=== PATIENT | female | born 1970 | race Two or more races ===

== ENCOUNTER 2024-02-25 21:57 | Emergency (ER) | payer MEDICAID, SELFPAY ==
[2024-02-25 22:08] VITALS: BP 162/92; PULSE 81; RESP 16; TEMP 36.8; O2SAT 98
--- NOTE | 2024-02-25 22:12 | EDNOTE_ITS ---
ED Skin Abcess FB-RME/HPI General Chief complaint: Skin/Abscess/Foreign Body Stated complaint: RASH, RAZO Time Seen by Provider: 02/25/24 22:07 Arrival date/time: 02/25/24 21:57 RME / HPI RME / HPI narrative: 54-year-old female patient with no significant medical history, came in for evaluation regarding right-sided chest wall rashes onset of symptoms for the last 3 days as painful rash on the right side of her chest wall, radiating to the back, severity moderate. Patient also complained of headache, and fevers. Denies any cough denies any other complaints no medications taken prior to arrival Related Data Previous Rx's ?Medication ?Instructions ?Recorded ibuprofen 800 mg tablet 800 mg PO TID PRN pain #30 tabs 02/25/24 valacyclovir 1 gram tablet 1,000 mg PO TID #21 tabs 02/25/24 (Valtrex) Allergies Allergy/AdvReac Type Severity Reaction Status Date / Time diphenhydramine Allergy Verified 02/25/24 22:01 [From Lucy] Review of Systems Review of Systems Narrative Review of Systems: Review of system reviewed and within normal limits except mentioned in HPI ED Exam Narrative Physical exam: VITAL SIGNS: Reviewed. GENERAL APPEARANCE: Alert and interactive, follows commands, no acute distress, HEAD AND FACE: Non-traumatic. ENT: PERRL, pink conjunctivitis, eyelid no trauma, Mucous membrane moist. NECK: Supple, nontender, no nuchal rigidity. CHEST: No tenderness, no crepitus, no paradoxical movement, no retractions. LUNGS: Clear, well ventilated, symmetric, no rales, no wheezing, no ronchi, no stridor, good breath sounds bilaterally. HEART: Regular rate, regular rhythm, no murmur, no gallops. ABDOMEN: Soft, positive bowel sounds, nondistended, no guarding, nontender, no rebound, no masses, RECTAL: Deferred. GENITAL: Deferred. NEUROLOGICAL: Gross motor function intact sensory function intact, Appropriate for age. MUSCULOSKELETAL: low back nontender, full range of motion. EXTREMITIES: Nontender, full range of motion. SKIN: Color pink, dry, multiple rashes noted on the right side of the chest wall, with blisters, erythematous, with tenderness, no lacerations, no abrasions, no contusions. LYMPHATICS: Deferred. Course Quality Measures none Orders Category Date Time Status Acyclovir [Zovirax] Med 02/25/24 22:17 Discontinued 800 mg PO X1 ONE Ketorolac Inj [Toradol Inj] Med 02/25/24 22:17 Discontinued 30 mg IM X1 ONE Vital Signs Vital signs: Vital Signs Temperature 98.3 F 02/25/24 22:08 Pulse Rate 81 02/25/24 22:08 Respiratory Rate 16 02/25/24 22:08 Blood Pressure 162/92 H 02/25/24 22:08 Pulse Oximetry (%) 98 02/25/24 22:08 Oxygen Delivery Method Room Air 02/25/24 22:08 Skin / Abscess / Foreign Body MDM Narrative MDM Narrative:: 54-year-old female patient with no significant medical history, came in for evaluation regarding right-sided chest wall rashes onset of symptoms for the last 3 days as painful rash on the right side of her chest wall, radiating to the back, severity moderate. Patient also complained of headache, and fevers. Denies any cough denies any other complaints no medications taken prior to arrival Patient is having shingles. Patient received acyclovir in the emergency room. Patient data External records reviewed:: None Clinical information provided by:: patient and family Social determinants that could affect healthcare access:: none Patient has the following chronic illnesses:: None How is presenting disease/condition affected by chronic disease/condition?: no chronic disease Evaluation data The following diagnostics were reviewed and interpreted by me:: other (specify) (none) Lab and/or radiology exams considered but not ordered:: none Interpretation Summary: none Medications / Prescriptions Medications or Prescriptions considered but not ordered:: None Medication administrations:: Medication Administration History Discontinued Medications Acyclovir (Acyclovir 800 Mg Tablet) 800 mg PO X1 ONE Stop: 02/25/24 22:18 Ketorolac Tromethamine (Ketorolac Inj 60 Mg/2 Ml Vial) 30 mg IM X1 ONE Stop: 02/25/24 22:18 Acyclovir, Toradol Consultations Consultation(s) initiated? (list below): No Diagnosis Skin/Abscess Differential Diagnosis: viral exanthem and herpes zoster Most likely diagnosis given after review of the tests above:: Single Admission Indicated Admission indicated?: not indicated Admission Request Was there a request for admission?: No Disposition Plan Disposition Plan: Discharge Discharge Attestation Discharge Attestation: The patient and all family members were given an opportunity to ask questions and understood the discharge instructions. Discharge instructions specifically effects, indications for sooner follow up or return to the emergency department, and the expected course of current diagnosis. Patient condition: Stable Discharge Plan Plan Patient Disposition: HOME (Self Care) Disposition Comment: None Prescriptions/Referrals Prescriptions/Med Rec: New valacyclovir [Valtrex] 1 gram tablet 1,000 mg PO TID Qty: 21 0RF ibuprofen 800 mg tablet 800 mg PO TID PRN (Reason: pain) Qty: 30 0RF Problem List Clinical Impression: Shingles Patient/Caregiver Discharge Instructions Discharge Activity: activity as tolerated Education Materials: ED Chickenpox (Adult) Additional Instructions: Thank you for the opportunity for serving you today. You are stable for discharged . You are advised to: Follow-up with your PCP in 1 to 2 days Return to ED for worsening of symptoms Increase oral fluids Take medication as prescribed Print Language: Romanian Stand Alone Forms: Shelli Award Info., Patient Portal Info Letter NATALIYA/CHIQUIS Supervising Physician NATALIYA/CHIQUIS Supervising Physician: MD Kay
[2024-02-25] MEDS: ACYCLOVIR 800 MG TABLET PO ×2 (22:35)
[2024-02-25] MEDS: KETOROLAC INJ 60 MG/2 ML VIAL 30 MG IM (22:35)
== END 2024-02-25 23:07 | disposition home or self-care (01) ==
LOC: SERX 22:55
PROVIDERS: Emergency Provider Emergency Medicine
DX: B02.9 Zoster without complications (principal)
CPT/HCPCS: 96372; 99283; J1885; A9270